=== PATIENT | male | born 1960 | race Caucasian/White ===

== ENCOUNTER → 2017-09-18 | Day surgery (SDC) | payer OTHER ==
[~2017-09-18] MED LIST: LACTATED RINGER'S 1000 ML INJ 1,000 ML ONE; LIDOCAINE HCL 1% 50 ML VIAL ONE; MIDAZOLAM HCL 2 MG/2 ML VIAL ONE; PROPOFOL 200 MG/20 ML AMP IV ONE; TRIAMCINOLONE ACETONIDE 40 MG/ML VIAL ONE
--- NOTE | 2017-09-18 15:09 | TN ---
cc: HARDIK CAZARES DATE OF SURGERY: September 18, 2017 PREOPERATIVE DIAGNOSIS Right hip osteoarthritis, arthrogryposis. POSTOPERATIVE DIAGNOSIS Right hip osteoarthritis, arthrogryposis. PROCEDURE Right hip manipulation, intra-articular steroid injection, fluoroscopic guidance of needle under anesthesia. SURGEON Celia Cazares MD ASSESSMENT Staff ANESTHESIA General SPECIMEN None ESTIMATED BLOOD LOSS None COMPLICATIONS Condition stable PLAN Activity as per orders. PROCEDURE The patient was operating room had satisfactory anesthesia by the part of Anesthesia. The right hip and lower extremity was prepped and draped in the used and the usual sterile manner. Fluoroscopic guidance an 18 gauge spinal needle was introduced into the right hip joint. The hip was injected with 1 mL Kenalog 40 and 5 mL of 1% plain lidocaine. The 18 gauge spinal needle was withdrawn from the right hip joint. Band-Aid placed over the injection site. The patient tolerated the procedure well and room in stable and satisfactory condition. X-RAY: Right hip in one view AP shows status post right hip manipulation. No obvious fracture dislocation subluxation. Satisfactory position 18 gauge spinal needle right hip joint. Right hip osteoarthritis. MD SARANYA Carmichael/rebeka /1:49 PM /2:49 PM
== END | disposition home or self-care (01) ==
LOC: ESDC 12:28
PROVIDERS: ATTEND Orthopaedic Surgery Orthopaedic Surgery of the Spine
DX: Q68.8 Other specified congenital musculoskeletal deformities (principal); M16.11 Unilateral primary osteoarthritis, right hip
CPT/HCPCS: 01200; 27275; 73501; 76000; J2250; J3010; J3301; J7120

== ENCOUNTER → 2017-12-07 | Outpatient (CLI) | payer OTHER ==
[~2017-12-07] MED LIST changes: +ALPR0.5T3 PO; +AMIT25TA9 PO; +ASPI81TA23 PO; +ATOR10TA15 PO; +CITA40TA4 PO; +CLOP75TA PO; +CYCL10TA PO; +EMPA1TAB3 PO; -LACTATED RINGER'S 1000 ML INJ 1,000 ML ONE; -LIDOCAINE HCL 1% 50 ML VIAL ONE; +LISI10TA3 PO; +METO25TA3 PO; -MIDAZOLAM HCL 2 MG/2 ML VIAL ONE; +NICO4LOZ30 BUCCAL; +NITR0.4S SL; +OXYC30TA PO; -PROPOFOL 200 MG/20 ML AMP IV ONE; +RANO500 PO; -TRIAMCINOLONE ACETONIDE 40 MG/ML VIAL ONE; +ZOFR4TAB PO
== END ==
LOC: CPRE 12:00
PROVIDERS: ATTEND Orthopaedic Surgery Orthopaedic Surgery of the Spine
DX: Z01.810 Encounter for preprocedural cardiovascular examination (principal); Z01.812 Encounter for preprocedural laboratory examination; M16.9 Osteoarthritis of hip, unspecified

== ENCOUNTER 2017-12-13 08:03 | Inpatient (IN) | payer OTHER ==
[~2017-12-13] VITALS: Ht 180.3 cm; Wt 98.0 kg
[2017-12-13] MEDS ORDERED: VANCOMYCIN 1 GM/200 ML INJ 200 ML IV ONE (08:32)
[2017-12-13] MEDS ORDERED: METOPROLOL TARTRATE 25 MG TAB PO PRN (08:45)
[2017-12-13] MEDS ORDERED: CHLORHEXIDINE GLUCONATE 2 % 1 PACK (2 CLOTHS) TOPICAL PRN (08:45)
[2017-12-13] MEDS ORDERED: CHLORHEXIDINE GLUCONATE 4% SOLN 120 ML BTL TOPICAL SCH (08:45)
[2017-12-13] MEDS ORDERED: ceFAZolin 2 GM PREMIX 50 ML IV SCH (08:45)
[2017-12-13] MEDS ORDERED: POVIDONE IODINE 5% (ANTISEPSIS KIT) 4 APPLICATIONS EACH NARE PRN (08:45)
[2017-12-13] MEDS ORDERED: INSULIN HUMAN REGULAR 1,000 UNITS/10 ML VIAL SQ PRN (08:45)
[2017-12-13] MEDS ORDERED: SODIUM CHLORID 0.9% 500 ML IV PRN (08:45)
[2017-12-13] MEDS ORDERED: LACTATED RINGER'S 1000 ML IV PRN (08:45)
[2017-12-13] MEDS ORDERED: VANCOMYCIN 1000 MG/NS 250 ML (for <70 kg) IV SCH ×2 (08:45)
[2017-12-13] MEDS ORDERED: GENTAMICIN SULFATE 80 MG/2 ML VIAL ONE (10:25)
[2017-12-13] MEDS ORDERED: PROPOFOL 200 MG/20 ML AMP IV ONE (12:00)
[2017-12-13] MEDS ORDERED: LACTATED RINGER'S 1000 ML INJ 2,000 ML IV ONE (12:00)
[2017-12-13] MEDS ORDERED: LIDOCAINE HCL 1% PF 5 ML SYRINGE OTHER ONE (12:00)
[2017-12-13] MEDS ORDERED: ONDANSETRON HCL 4 MG/2 ML VIAL IV ONE (12:00)
[2017-12-13] MEDS ORDERED: NEOSTIGMINE 5 MG/5 ML SYRINGE IV PUSH ONE (12:00)
[2017-12-13] MEDS ORDERED: ePHEDrine/NS 25 MG/5 ML SYRINGE IV ONE (12:00)
[2017-12-13] MEDS ORDERED: ROCURONIUM INJ 50 MG/5 ML SYRINGE IV PUSH ONE (12:00)
[2017-12-13] MEDS ORDERED: GLYCOPYRROLATE 1 MG/5 ML SYRINGE IV PUSH ONE (12:00)
[2017-12-13] MEDS ORDERED: PHENYLEPH/NS 1000 MCG/10 ML SYR IV ONE (12:00)
[2017-12-13] MEDS ORDERED: ceFAZolin INJ 1,000 MG VIAL IV ONE (12:00)
[2017-12-13] MEDS ORDERED: *ONDANSETRON 4 MG VIAL PERIprocedural Use ONLY ONE (14:27)
[2017-12-13] MEDS ORDERED: *morphine SULFATE 4 MG/ML PERIprocedure ONLY ONE (14:29)
[2017-12-13] MEDS ORDERED: Post-op Orders (for Pharmacy) XX ONE (14:30)
[2017-12-13] MEDS ORDERED: NITROGLYCERIN 0.4 MG SL 25 TABS/BTL SL PRN (14:30)
[2017-12-13] MEDS ORDERED: ONDANSETRON HCL 4 MG/2 ML VIAL IVP PRN (14:30)
[2017-12-13] MEDS ORDERED: ALUMINUM/MAGNESIUM/SIMETH 30 ML CUP PO PRN (14:30)
[2017-12-13] MEDS ORDERED: BEDSIDE COMMODE1 MI1 (14:31)
[2017-12-13] MEDS ORDERED: WALKER WHEELS/F1 MIS (14:31)
--- NOTE | 2017-12-13 14:32 | HHI.FF ---
Face to Face Verification Diagnosis: (1) Osteoarthritis of right hip Physical Therapy Gait training, Transfer training, bed to chair Hip: Total hip, Protocol: Right, Posterior hip precautions Right LE Weight Bearing: WB as tolerated Left LE Weight Bearing: WB as tolerated Nursing RN: 3 days/week x 2 weeks Nursing: Dressing changes (clean incision with alcohol and apply dry, sterile dressing ) Additional Instructions May resume pre op Plavix on Friday 12/15, also take baby aspirin 81 mg bid x 4 weeks and then may resume one baby aspirin a day there after I have seen patient Craig Gusman on 12/13/17. My clinical findings support the need for the requested home health care services because: High risk of falls I certify that my clinical findings support that this patient is homebound because: Unsteady gait/balance Lyndon Hayes MD Dec 13, 2017 14:32
[2017-12-13] MEDS ORDERED: *morphine SULFATE 10 MG/ML PERIprocedure ONLY ONE ×2 (14:38→15:11)
--- NOTE | 2017-12-13 15:08 | MP ---
cc: Lyndon Hayes MD, Martha Warner, Daniel A MD Bianco, Robert DATE OF OPERATION: PREOPERATIVE DIAGNOSES: 1. Left hip severe osteoarthritis. 2. History of hepatitis C virus status post antiviral medical treatment, finished in 08/2016. POSTOPERATIVE DIAGNOSES: 1. Left hip severe osteoarthritis. 2. History of hepatitis C virus status post antiviral medical treatment, finished in 08/2016. PROCEDURE: Right total hip arthroplasty. SURGEON: Lyndon Hayes MD A&P TECHNICIAN: Isabella Kaiser PA-C COMPLICATIONS: None. ANESTHESIA: General. DRAIN: None. SPECIMEN: Right femoral head. PROCEDURE: My registered dental assistant rda, Isabella Kaiser PA-C, was present for the entire surgical case. She was medically necessary for entire case because of the complexity of the case and to facilitate the performance of the procedure. The MASK DESIGNER at the back table did not have the skill set for this case to manipulate the instruments, e.g., the multiple types of soft tissues retractors, trial implants, and permanent implants. Patient brought in the operating room and had satisfactory general endotracheal anesthesia by the department of anesthesia. The patient was placed in the lateral decubitus position. All pressure points were well padded. The right hip and lower extremity down to and including the toes was prepped and draped in the usual standard manner. A posterolateral exposure of the hip was made. All bleeders were individually coagulated. A muscle splitting incision was made in the vastus lateralis and the gluteus kalie. Muscle splitting incision was made in the fascia jasvir and the gluteus kalie. franco Charnley retractor placed in the wound in order to allow better exposure. The short external rotators were moved as a group. The hip abductors were preserved. The hip capsule was removed. Patient was found to have significant inflammatory changes within the hip joint itself with a significant hip effusion. The hip was dislocated posteriorly, osteotomy made on the femoral neck at appropriate level. Attention was now brought to the acetabulum. Acetabular labrum was surgically excised sharply. Hemispherical reamers were used to initially deepen and prepare the acetabulum with the hemispherical reamers. A trial reduction was made with a 58 mm bicentric cup in a press-fit type manner, which was found to be very stable and satisfactory. Attention now brought to the proximal femur. Using the [employer] system, it was sequentially broached with #14 standard offset broach and a +3 neck, 28 mm head was then assembled onto the trunnion. Hip was then reduced again. Patient was found to have satisfactory limb lengths, satisfactory stability and satisfactory range of motion. Hip was dislocated again posteriorly, and all trial components removed. The wound was irrigated with copiously amounts of sterile saline antibiotic solution. The wound itself was dry. A 14 mm standard offset tip lock stem was placed in anatomic position approximately 15 degrees of anteversion with an excellent "fit and fill." The +3 neck, 28 mm ball ceramic head was then assembled onto the trunnion. The hip was again reduced. Again, the patient was found to have satisfactory limb lengths, satisfactory stability, and satisfactory range of motion. The wound again was irrigated with copious amounts of sterile saline antibiotic solution throughout the remaining part of the operative procedure. The short external rotators were repaired back to the greater trochanter with drill holes using #2 Tycron suture. The fascia jasvir and gluteus kalie were closed with #2 Tycron suture, subcutaneous lateral with 0 Vicryl and 2-0 Vicryl and skin approximated with running subcuticular 2-0 nylon. Sterile dressings were applied. Patient tolerated the procedure well and arrived in the recovery room in stable and satisfactory condition. MD GIOVANI Shukla/JUSTINA , 02:38 PM , 03:06 PM CARLO
[2017-12-13] MEDS ORDERED: DO NOT ADM ANY ANTICOAGULANT DRUGS PRN (15:30)
--- NOTE | 2017-12-13 15:32 | RADRPT ---
EXAM DATE/TIME: 12/13/2017 14:46 [facility] COMPARISON: No previous studies available for comparison. INDICATIONS : Post op. MEDICAL HISTORY : None. SURGICAL HISTORY : None. ENCOUNTER: Initial ACUITY: 1 day PAIN SCORE: 8/10 LOCATION: Right hip FINDINGS: Post surgical features of right hip arthroplasty. Arthroplasty components are in anatomic alignment a nd well-positioned. No acute fracture. Immediate posterior to soft tissue changes are noted. CONCLUSION: 1. Status post right hip arthroplasty in anatomic alignment without acute fracture. Franklin Francisco MD on December 13, 2017 at 15:30 Board Certified Radiologist. This report was verified electronically.
[2017-12-13] MEDS ORDERED: PILL SPLITTER OTHER PRN (16:00)
[2017-12-13] MEDS: LACTATED RINGER'S 1000 ML INJ 1,000 ML IV SCH (16:00)
[2017-12-13] MEDS: MORPHINE SULFATE 8 MG/ML INJ IV PUSH PRN ×2 (17:35→21:23)
[2017-12-13] MEDS ORDERED: NICOTINE 4 MG OTHER PRN (17:45)
[2017-12-13] MEDS: AMITRIPTYLINE HCL 25 MG TAB PO SCH (20:32)
[2017-12-13] MEDS: CITALOPRAM HYDROBROMIDE 40 MG TAB PO SCH (20:32)
[2017-12-13] MEDS: CYCLOBENZAPRINE HCL 10 MG TAB PO SCH (20:32)
[2017-12-13] MEDS: ATORVASTATIN 10 MG TAB PO SCH (20:33)
[2017-12-13] MEDS: METOPROLOL TARTRATE 25 MG TAB PO SCH (20:33)
[2017-12-13] MEDS: LISINOPRIL 10 MG TAB PO SCH (20:33)
[2017-12-13] MEDS: ASPIRIN EC 81 MG TABEC PO SCH (20:33)
[2017-12-13 20:35] VITALS: BP 158/86; PULSE 94; RESP 19; TEMP 96.7; O2SAT 92
[2017-12-13] MEDS: RANOLAZINE 500 MG EXTENDED RELEASE TAB PO SCH (20:38)
[2017-12-13] MEDS ORDERED: ZOLPIDEM TARTRATE 5 MG TAB PO PRN (21:00)
[2017-12-13] MEDS: ALPRAZolam 0.5 MG TAB PO PRN (21:23)
[2017-12-13 23:30] VITALS: BP 163/90; PULSE 95; RESP 18; TEMP 100.1; O2SAT 93
[2017-12-14] VITALS (8 sets, daily range): BP systolic 100–160; BP diastolic 60–89; PULSE 88–93; RESP 16–20; TEMP 96.9–100.7; O2SAT 92–98
[2017-12-14] MEDS: MORPHINE SULFATE 8 MG/ML INJ IV PUSH PRN ×7 (00:30→23:38)
[2017-12-14] MEDS: LACTATED RINGER'S 1000 ML INJ 1,000 ML IV SCH ×3 (01:38→20:08)
[2017-12-14 05:23] LABS: HEMATOCRIT 40.4 % (39.0-51.0); HEMOGLOBIN 13.8 GM/DL (13.0-17.0)
--- NOTE | 2017-12-14 05:31 | PD.ORT.PN ---
Subjective Subjective Remarks POD#1 R THR C/O post op pain;patient has history of chronic pain syndrom No chest pain;no sob Objective Vitals Vital Signs Date Time Temp Pulse Resp B/P (MAP) Pulse Ox O2 Delivery O2 Flow Rate FiO2 12/13/17 23:30 100.1 95 18 163/90 (114) 93 12/13/17 20:35 96.7 94 19 158/86 (110) 92 12/13/17 16:40 97.6 71 16 121/65 (83) 95 Room Air 12/13/17 16:00 76 16 121/68 (85) 94 Room Air 12/13/17 15:30 98.2 74 16 128/69 (88) 98 Nasal Cannula 2 12/13/17 15:16 15 12/13/17 15:15 75 16 132/66 (88) 96 Nasal Cannula 2 12/13/17 15:00 78 16 140/63 (88) 96 Nasal Cannula 2 12/13/17 14:45 80 17 152/70 (97) 95 Nasal Cannula 2 12/13/17 14:43 15 12/13/17 14:34 15 12/13/17 14:30 85 17 160/71 (100) 100 Nasal Cannula 3 12/13/17 14:22 98.6 86 20 161/77 (105) 99 Nasal Cannula 3 12/13/17 08:30 98.1 61 20 115/69 (84) 98 I/O 12/13/17 12/13/17 12/13/17 12/14/17 12/14/17 12/14/17 07:00 15:00 23:00 07:00 15:00 23:00 Intake Total 2400 ml Output Total 300 ml Balance 2100 ml Other 2400 ml Output Estimated Blood Loss 300 ml # Voids 1 Objective Remarks N/V intact dressings dry No LLD Assessment & Plan Assessment and Plan Ortho stable Rehab/PT Aspirin EC 81 mg BIDx 4 weeks,TEDS for DVT prophylaxsis Possible D/C home tomorrow with C RN/PT Lyndon Hayes MD Dec 14, 2017 05:31
[2017-12-14] MEDS: RANOLAZINE 500 MG EXTENDED RELEASE TAB PO SCH ×2 (08:13→20:02)
[2017-12-14] MEDS: ASPIRIN EC 81 MG TABEC PO SCH ×2 (08:14→20:02)
[2017-12-14] MEDS: METOPROLOL TARTRATE 25 MG TAB PO SCH ×2 (08:14→20:08)
[2017-12-14] MEDS: ALPRAZolam 0.5 MG TAB PO PRN (08:14)
[2017-12-14] MEDS: LISINOPRIL 10 MG TAB PO SCH ×2 (08:14→20:08)
--- NOTE | 2017-12-14 08:59 | PD.CONS ---
HPI Service [facility] Hospitalists Consult Requested By Dr. Asif Reason for Consult Post-op medical management Primary Care Physician Brianna March M.D. Diagnoses: History of Present Illness This is a 57-year-old male patient with past medical history which includes cervical radiculopathy, chronic pain syndrome, anxiety disorder, major depression, CAD status post SD with cardiac stent, hepatitis C, GERD, hypertension, hyperlipidemia, obesity, emphysema and osteoarthritis left hip. Patient underwent right total hip arthroplasty 12/13/[address] Hayes. We have been consulted for assistance with postoperative medical management. Past Family Social History Past Medical History cervical radiculopathy, chronic pain syndrome, anxiety disorder, major depression, CAD status post SD with cardiac stent, hepatitis C, GERD, hypertension, hyperlipidemia, obesity, emphysema. Past Surgical History Appendectomy, cardiac stent placement 3 and hand surgery Reported Medications Flexeril (Cyclobenzaprine HCl) 10 Mg Tab 10 Mg PO HS Nicotine Genie (Nicotine Polacrilex) 4 Mg Genie 4 Mg BUCCAL Q1H PRN Jardiance (Empagliflozin) 25 Mg Tab 25 Mg PO DAILY Amitriptyline (Amitriptyline HCl) 25 Mg Tab 25 Mg PO HS Oxycodone (Oxycodone HCl) 30 Mg Tab 30 Mg PO BID Alprazolam 0.5 Mg Tab 0.5 Mg PO BID PRN Ranexa ER 12 HR (Ranolazine) 500 Mg Tab 500 Mg PO BID Zofran (Ondansetron HCl) 4 Mg Tab 4 Mg PO Q6HR PRN Nitrostat SL (Nitroglycerin) 0.4 Mg Subl 0.4 Mg SL DIRECTED PRN 1 tablet under the tongue as needed for chest pain. Repeat every 5 minutes for a total of 3 DOSES or call 911 if NO relief. Citalopram (Citalopram Hydrobromide) 40 Mg Tab 40 Mg PO HS Metoprolol Tartrate 25 Mg Tab 12.5 Mg PO BID Lisinopril 10 Mg Tab 10 Mg PO BID Aspirin EC (Aspirin) 81 Mg Tabdr 81 Mg PO DAILY Atorvastatin (Atorvastatin Calcium) 10 Mg Tab 10 Mg PO HS Clopidogrel (Clopidogrel Bisulfate) 75 Mg Tab 75 Mg PO DAILY Allergies: Coded Allergies: Tetracyclines (Verified Allergy, Severe, Rash, 12/07/17) terbinafine (Verified Allergy, Severe, Rash, 12/07/17) and joint pain Family History Reviewed and noncontributory Social History EtOH use Former tobacco use quit smoking Physical Exam Vital Signs Vital Signs Date Time Temp Pulse Resp B/P (MAP) Pulse Ox O2 Delivery O2 Flow Rate FiO2 12/14/17 05:00 99.5 92 20 160/85 (110) 93 12/13/17 23:30 100.1 95 18 163/90 (114) 93 12/13/17 20:35 96.7 94 19 158/86 (110) 92 12/13/17 16:40 97.6 71 16 121/65 (83) 95 Room Air 12/13/17 16:00 76 16 121/68 (85) 94 Room Air 12/13/17 15:30 98.2 74 16 128/69 (88) 98 Nasal Cannula 2 12/13/17 15:16 15 12/13/17 15:15 75 16 132/66 (88) 96 Nasal Cannula 2 12/13/17 15:00 78 16 140/63 (88) 96 Nasal Cannula 2 12/13/17 14:45 80 17 152/70 (97) 95 Nasal Cannula 2 12/13/17 14:43 15 12/13/17 14:34 15 12/13/17 14:30 85 17 160/71 (100) 100 Nasal Cannula 3 12/13/17 14:22 98.6 86 20 161/77 (105) 99 Nasal Cannula 3 Physical Exam GENERAL: This is a well-nourished, well-developed patient, in no apparent distress. SKIN: No rashes, ecchymoses or lesions. Cool and dry. HEAD: Atraumatic. Normocephalic. No temporal or scalp tenderness. EYES: Pupils equal round and reactive. Extraocular motions intact. No scleral icterus. No injection or drainage. ENT: Nose without bleeding, purulent drainage or septal hematoma. Throat without erythema, tonsillar hypertrophy or exudate. Uvula midline. Airway patent. NECK: Trachea midline. No JVD or lymphadenopathy. Supple, nontender, no meningeal signs. CARDIOVASCULAR: Regular rate and rhythm without murmurs, gallops, or rubs. RESPIRATORY: Clear to auscultation. Breath sounds equal bilaterally. No wheezes , rales, or rhonchi. GASTROINTESTINAL: Abdomen soft, non-tender, nondistended. No hepato-splenomegaly , or palpable masses. No guarding. MUSCULOSKELETAL: Extremities without clubbing, cyanosis, or edema. No joint tenderness, effusion, or edema noted. No calf tenderness. Negative Homans sign bilaterally. NEUROLOGICAL: Awake and alert. Cranial nerves II through XII intact. Motor and sensory grossly within normal limits. Five out of 5 muscle strength in all muscle groups. Normal speech. Laboratory Laboratory Tests Test 12/14/17 04:37 Hemoglobin 13.8 Hematocrit 40.4 Result Diagram: 12/14/17 0437 Assessment and Plan Problem List: (1) Osteoarthritis of right hip ICD Codes: M16.11 - Unilateral primary osteoarthritis, right hip Plan: right total hip arthroplasty 12/13/[address] Hayes Anticoagulation per orthopedic surgery (2) CAD (coronary artery disease) ICD Codes: I25.10 - Atherosclerotic heart disease of cahto coronary artery without angina pectoris Plan: Continue patient's home metoprolol 12.5 g by mouth twice a day, atorvastatin 10 mg by mouth daily at bedtime, Ranexa 500 mg by mouth twice a day and Plavix 75 mg daily (3) Hyperlipidemia ICD Codes: E78.5 - Hyperlipidemia, unspecified Plan: Continue patient's home atorvastatin 10 monos by mouth daily at bedtime (4) HTN (hypertension) ICD Codes: I10 - Essential (primary) hypertension Plan: Continue patient's home metoprolol 12.5 mg by mouth twice a day and lisinopril 10 mg by mouth twice a day Monitor blood pressure trend (5) Chronic pain ICD Codes: G89.29 - Other chronic pain Plan: Patient has been continued on his home oxycodone 30 mg by mouth twice a day (6) Anxiety and depression ICD Codes: F41.9 - Anxiety disorder, unspecified; F32.9 - Major depressive disorder, single episode, unspecified Plan: Continue patient's home regimen which includes and amitriptyline 25 mg by mouth daily at bedtime, citalopram 40 mg by mouth daily at bedtime, alprazolam 0.5 minutes by mouth twice a day as needed for anxiety (7) Diabetes ICD Codes: E11.9 - Type 2 diabetes mellitus without complications Plan: Patient home Empagliflozin 25 mg by mouth daily has been requested by orthopedic surgery Add Accu-Cheks before meals and at bedtime with sliding scale insulin coverage if needed with diabetic diet Assessment and Plan Patient examined. Assessment and plan formulated with Paola Wagner PA-C. I agree with the above. Problem Qualifiers (1) Osteoarthritis of right hip: Qualified Codes: M16.11 - Unilateral primary osteoarthritis, right hip Paola Wagner Dec 14, 2017 08:59 Ck Trejo DO Dec 16, 2017 01:04
[2017-12-14] MEDS ORDERED: JARDIANCE 25 MG PO SCH (09:00)
[2017-12-14] MEDS ORDERED: GLUCAGON 1 MG/ML VIAL OTHER PRN (09:15)
[2017-12-14] MEDS ORDERED: DEXTROSE 50% IN WATER 50 ML VIAL(D50) IV PUSH PRN (09:15)
[2017-12-14] MEDS: INSULIN ASPART SUPPLEMENTAL SCALE SQ SCH ×3 (12:00→20:08)
[2017-12-14] MEDS: ONDANSETRON ODT 4 MG TAB PO PRN (17:30)
[2017-12-14] MEDS: CITALOPRAM HYDROBROMIDE 40 MG TAB PO SCH (20:02)
[2017-12-14] MEDS: DOCUSATE SODIUM 100 MG CAP PO SCH (20:02)
[2017-12-14] MEDS: ATORVASTATIN 10 MG TAB PO SCH (20:02)
[2017-12-14] MEDS: CYCLOBENZAPRINE HCL 10 MG TAB PO SCH (20:02)
[2017-12-14] MEDS: AMITRIPTYLINE HCL 25 MG TAB PO SCH (20:02)
[2017-12-15 03:15] VITALS: BP 103/71; PULSE 89; RESP 17; TEMP 96.7; O2SAT 93
[2017-12-15 08:00] VITALS: BP 129/73; PULSE 88; RESP 18; TEMP 98; O2SAT 92
[2017-12-15] MEDS: INSULIN ASPART SUPPLEMENTAL SCALE SQ SCH ×2 (08:00→11:26)
[2017-12-15] MEDS: METOPROLOL TARTRATE 25 MG TAB PO SCH (08:24)
[2017-12-15] MEDS: DOCUSATE SODIUM 100 MG CAP PO SCH (08:24)
[2017-12-15] MEDS: ASPIRIN EC 81 MG TABEC PO SCH (08:24)
[2017-12-15] MEDS: LISINOPRIL 10 MG TAB PO SCH (08:25)
[2017-12-15] MEDS: RANOLAZINE 500 MG EXTENDED RELEASE TAB PO SCH (08:25)
--- NOTE | 2017-12-15 09:20 | PD.ORT.PN ---
Subjective Subjective Remarks pt was on oxycodone 30 mg bid pre-op having difficult time with pain control post op having to use morphine for breakthrough pain plan was to discharge home but pt feels he may need to go to rehab today instead Objective Vitals Vital Signs Date Time Temp Pulse Resp B/P (MAP) Pulse Ox O2 Delivery O2 Flow Rate FiO2 12/15/17 08:30 Room Air 12/15/17 03:15 96.7 89 17 103/71 (82) 93 12/14/17 23:40 96.9 89 17 102/61 (75) 92 12/14/17 20:06 94 Nasal Cannula 12/14/17 19:30 97.3 91 18 100/60 (73) 92 12/14/17 16:00 100.7 93 16 116/67 (83) 93 12/14/17 14:50 94 Room Air 12/14/17 12:00 99.8 88 18 127/79 (95) 98 12/14/17 10:31 94 I/O 12/14/17 12/14/17 12/14/17 12/15/17 12/15/17 12/15/17 07:00 15:00 23:00 07:00 15:00 23:00 Intake Total 2474 ml 580 ml 720 ml Output Total 1800 ml 750 ml 700 ml Balance 674 ml -170 ml 20 ml Intake Oral 720 ml 580 ml 720 ml IV Total 1754 ml Output Urine Total 1800 ml 750 ml 700 ml # Bowel Movements 0 0 Result Diagram: 12/14/17 0437 Objective Remarks also seen and examined by Dr. Edgar ledbetter right hip dressing dry and intact N/V intact no calf tenderness, neg homas sign No LLD Assessment & Plan Assessment and Plan POD # 2 s/p R DIAMOND Rehab/PT-[facility]AT Aspirin EC 81 mg BID x 4 weeks,informed patient he may also resume his pre-op plavix today TEDS for DVT prophylaxsis will increase his oxycodone 30 mg to TID instead of BID discharge to SNF today Isabella Kaiser Dec 15, 2017 09:20
[2017-12-15] MEDS ORDERED: ECASA81 PO (09:47)
[2017-12-15] MEDS ORDERED: OXYC-395 PO (09:47)
[2017-12-15] MEDS ORDERED: MAGNESIUM HYDROXIDE SUSP 30 ML CUP PO SCH (11:00)
[2017-12-15] MEDS ORDERED: BISACODYL EC 5 MG TABEC PO SCH (11:00)
[2017-12-15] MEDS ORDERED: LACTULOSE SYRUP 20 GM/30 ML CUP PO SCH (11:00)
[2017-12-15] MEDS: LACTATED RINGER'S 1000 ML INJ 1,000 ML IV SCH (11:26)
[2017-12-15 11:28] VITALS: BP 87/54; PULSE 82; RESP 17; TEMP 98.8; O2SAT 94
[2017-12-15] MEDS: ONDANSETRON ODT 4 MG TAB PO PRN (12:41)
== END 2017-12-15 13:05 | disposition home health service (06) | DRG 470 ==
LOC: HSDI 08:03 → N06A 17:02
PROVIDERS: ADMIT Orthopaedic Surgery Orthopaedic Surgery of the Spine; ATTEND Orthopaedic Surgery Orthopaedic Surgery of the Spine
PROC: 0SR903A Replacement of Right Hip Joint with Ceramic Synthetic Substitute, Uncemented, Open Approach (ICD-10-PCS; principal; 2017-12-13 12:04)
DX: M16.11 Unilateral primary osteoarthritis, right hip (principal); E66.9 Obesity, unspecified; Z68.30 Body mass index [BMI] 30.0-30.9, adult; I10 Essential (primary) hypertension; R73.03 Prediabetes; F32.9 Major depressive disorder, single episode, unspecified; K21.9 Gastro-esophageal reflux disease without esophagitis; I25.10 Atherosclerotic heart disease of native coronary artery without angina pectoris; Z95.5 Presence of coronary angioplasty implant and graft; I25.2 Old myocardial infarction; E78.5 Hyperlipidemia, unspecified; G89.4 Chronic pain syndrome; Z87.891 Personal history of nicotine dependence
CPT/HCPCS: 73501; 82948; 85014; 85018; 86850; 86900; 86901; 86920; 88304; 88305; 88311; 94150; C1776; J0690; J1580; J2270; J2370; J2405; J2710; J3010; J3370; J7120; L1830